=== PATIENT | female | born 1940 | race Caucasian/White ===

== ENCOUNTER 2016-07-31 11:16 | Outpatient (CLI) | payer MEDICARE, BC ==
[~2016-07-31] VITALS: Ht 167.6 cm; Wt 67.7 kg
--- NOTE | ~2016-07-31 | HEMODYNAMI ---
PATIENT:JOHANNA HURTADO MEDICAL RECORD: [id number] : 36 LOCATION:[facility] ADMISSION DATE: 07/31/16 Generatedon:07/31/201614:42 Patient name: JOHANNA HURTADO Patient #: [id number] SSN: [id number] : 1940 Date of study: 07/31/2016 Page: Of Hemodynamic Procedure Report Patient Data Patient Demographics Procedure consent was obtained First Name: JOHANNA Gender: Female Last Name: BRYANT : 1940 Patient #: [id number] Age: 75 year(s) Race: Unknown SSN: [id number] Additional ID: [id number] Contact details Address: [place] [address] State: [place] City: [place] Zip code: [address] Past Medical History Allergies Allergen Reaction Date Comments Reported Other allergy 07/31/2016 Lidocaine, Novocain, statins Admission Admission Data Admission Date: 07/31/2016 Admission Time: 11:16 Arrival Date: 07/31/2016 Arrival Time: 0:00 Insurance Payor: Private health insurance, Medicare Height (in.): 66 BSA: 1.77 (m2) Height (cm.): 167.64 BMI: 24.37 (kg/m2) Weight (lbs.): 151 Weight (kg.): 68.49 Lab Results Lab Result Date: 07/31/2016 Lab Result Time: 0:00 Biochemistry Name Units Result Min Max BUN mg/dl 17 --(---*)-- 7 18 Creatinine mg/dl 0.8 --(-*--)-- 0.6 1.3 CBC Name Units Result Min Max Hemoglobin g/dl 12.8 -*(----)-- 13.5 17.5 Procedure Procedure Types Cath Procedure Diagnostic Procedure LHC LHC w/Coronaries Miscellaneous Procedures Moderate Sedation up to 15 minutes Procedure Description Procedure Date Procedure Date: 07/31/2016 Procedure Start Time: 14:27 Procedure End Time: 14:38 Procedure Staff Name Function Jas Hightower MD Performing Physician Brenda Hernandez RT Scrub Keke Marie RN Nurse Kisha Beaver RT Monitor Procedure Data Cath Procedure Fluoroscopy Diagnostic fluoroscopy Total fluoroscopy Time: 1.2 time: 1.2 min min Diagnostic fluoroscopy Total fluoroscopy dose: 69 dose: 69 mGy mGy Contrast Material Contrast Material Type Amount (ml) Isovue 300 55 Entry Location Entry Primary Successful Side Size Upsize Upsize Entry Closure Succes sful Closure Location (Fr) 1 (Fr) 2 (Fr) Remarks Device Remarks Femoral Right 5 Fr Exoseal artery Estimated blood loss: 10 ml Diagnostic catheters Device Type Used For End Catheter Placement Cordis 5Fr JL 4.0 Procedure Catheter (MP) Cordis 5Fr 3DRC Catheter Procedure (MP) Cordis 5Fr Pigtail Procedure Catheter (MP) Procedure Complications No complications Procedure Medications Medication Administration Route Dosage Oxygen NC 2 l/min Heparin Flush Bag added to field 2 bags (1000units/500ml NS) Versed I.V. 1 mg Fentanyl I.V. 50 mcg Versed I.V. 1 mg Fentanyl I.V. 50 mcg Benadryl added to field 50 mg Hemodynamics Rest BSA: 1.77 (m2) HGB: 12.8 (g/dl) O2 Consumption: Estimated: 151.96 (ml/min) O2 Co nsumption indexed: Estimated:85.85 (ml/min/m) Heart Rate: 58 (bpm) Pressure Samples Time Site Value (mmHg) Purpose Heart Use Rate(bpm) 14:35 LV 103/-6,9 Snapshot 65 14:35 AO 111/40(72) Pullback 69 14:35 LV 106/3,9 Pullback 69 Gradients Valve Time Site 1 Site 2 Mean SEP/DFP Peak To Heart Use (mmHg) (sec/min) Peak Rate (mmHg) (bpm) Aortic 14:35 LV AO 0 18 0 69 106/3,9 111/40(72) Calculations Valve P-P Mean Valve Index Valve Source Name Gradient Area Flow (cm2) Aortic 0 0 0 0 Snapshots Pre Cath Intra NCS Post Cath Vital Signs Time Heart Resp SPO2 NIBP Rhythm Pain Sedation Rate (ipm) (%) (mmHg) Status Level (bpm) 14:12:02 57 16 98 136/56(97) NSR 0 (11) 10(A) , No pain 14:16:18 58 16 97 119/60(90) NSR 0 (11) 10(A) , No pain 14:20:30 63 14 96 119/55(82) NSR 0 (11) 10(A) , No pain 14:24:44 55 15 95 104/57(83) NSR 0 (11) 10(A) , No pain 14:28:52 63 15 95 115/53(84) NSR 0 (11) 9(A) , No pain 14:33:00 124 14 95 106/65(89) NSR 0 (11) 9(A) , No pain 14:37:08 67 15 95 114/56(78) NSR 0 (11) 9(A) , No pain Medications Time Medication Route Dose Verified Delivered Reason Notes Effec tiveness by by 14:10:58 Oxygen NC 2 Jas Keke Per l/min [place] Cynthia RN physician 14:11:06 Heparin Flush added 2 Jas Jas used for Bag to bags [facility] procedure (1000units/500ml field MD BARRAZA NS) 14:21:25 Versed I.V. 1 mg Jas Keke for [place] Cynthia RN sedation 14:21:32 Fentanyl I.V. 50 Jas Keke for mcg [place] Cynthia SPAIN sedation 14:24:47 Versed I.V. 1 mg Jas Keke for [place] Cynthia RN sedation 14:24:51 Fentanyl I.V. 50 Jas Keke for [facility] Cynthia RN sedation 14:29:46 Benadryl added 50 mg Jas Jas used for to [facility] procedure field MD BARRAZA Procedure Log Time Note 13:45:29 Brenda Hernandez RT(R) sent for patient. Start room use. 14:01:02 Diagnostic Cath Status : Elective 14:03:37 Patient Height : 167.64 inches 14:03:50 Patient Weight : 68.49 lbs 14:03:50 Insurance Payor : Private health insurance, Medicare 14:03:58 Arrival Date: 07/31/2016 12:00:00 AM 14:04:56 Procedure type changed to Cath procedure, Diagnostic procedure, LHC, LHC w/Coronaries, Miscellaneous Procedures, Moderate Sedation up to 15 minutes 14:05:22 Time tracking: Regular hours 14:05:27 Plan of Care:Hemodynamics will remain stable., Cardiac rhythm will remain stable., Comfort level will be maintained., Respiratory function will remain adequate., Patient/ family verbilizes understanding of procedure., Procedure tolerated without complication., Recovers from procedure without complications.. 14:05:38 Patient received from Outpatients to [facility] 3 Alert and oriented. Tansferred to table in Supine position. 14:05:39 Warm blankets applied, and rosalino hugger turned on for patient comfort. 14:05:39 Correct patient and procedure confirmed by team. 14:05:41 Signed procedure consent form obtained from patient. 14:05:50 H&P Date Dictated: 07/26/2016 Within 30 days and on chart., H&P Addendum completed by physician on day of procedure. (MUST COMPLETE FOR ALL OUTPATIENTS). 14:05:53 Pre-procedure instructions explained to patient. 14:05:54 Family in waiting room. 14:05:56 Patient NPO since Midnight. 14:06:34 Patient allergic to Other allergyLidocaine, Novocain, statins 14:06:44 Is the patient allergic to Iodine/contrast media? No. 14:06:53 Is patient on blood thinner?No 14:06:54 Patient diabetic? No. 14:06:58 Snore? Yes 14:07:00 Sleep apnea? No 14:07:15 Patient pain scale 0/10 ?. 14:07:34 IV patent on arrival in left forearm with 0.9% NaCl at O. 14:07:47 Lab results completed and on chart. 14:09:41 Lab Result : BUN 17 mg/dl 14:09:41 Lab Result : Hemoglobin 12.8 g/dl 14:09:41 Lab Result : Creatinine 0.8 mg/dl 14:09:47 Lab results completed and on chart. 14:09:50 Right groin area was prepped with chlora-prep and draped in sterile fashion 14:10:02 Sharps counted by scrub and verified by R.N. 14:10:03 Physician paged 14:10:46 Vital chart was started 14:10:58 Oxygen 2 l/min NC was given by Keke Marie RN; Per physician; 14:11:06 Heparin Flush Bag (1000units/500ml NS) 2 bags added to field was given by Jas Hightower MD; used for procedure; 14:16:54 ECG and BP/O2 sat monitors applied to patient. 14:16:55 Baseline sample Acquired. 14:17:00 Rhythm: sinus rhythm 14:17:03 Full Disclosure recording started 14:17:21 Use device set Femoral Dx 14:20:10 Acist Syringe opened to sterile field. 14:20:11 Bag Decanter opened to sterile field. 14:20:11 Medline Cath Pack opened to sterile field. 14:20:12 Terumo 5Fr [place] Sheath opened to sterile field. 14:20:13 St C[employer]ar 260cm J .035 wire opened to sterile field. 14:20:14 Acist Hand Control opened to sterile field. 14:20:14 Acist Manifold opened to sterile field. 14:20:15 Diagnostic Infinity 5Fr Multipack catheter opened to sterile field. 14:20:18 Tegaderm 4 x 4 opened to sterile field. 14:20:27 --------ALL STOP TIME OUT------ 14:20:28 Final Timeout: patient, procedure, and site verified with staff and physician. All members of the team are in agreement. 14:20:31 Right groin site verified by team. 14:20:34 Physical assessment completed. ASA score P 2 - A patient with mild systemic disease as per Jas Hightower MD. 14:20:39 Sedation plan: IV Moderate Sedation Versed, Fentanyl 14:21:25 Versed 1 mg I.V. was given by Keke Marie RN; for sedation; 14:21:32 Fentanyl 50 mcg I.V. was given by Keke Marie RN; for sedation; 14:24:47 Versed 1 mg I.V. was given by Keke Marie RN; for sedation; 14:24:51 Fentanyl 50 mcg I.V. was given by Keke Marie RN; for sedation; 14:27:09 Procedure started. 14:28:43 Benadryl used for local in right groin 14:29:18 A 5 Fr sheath was inserted into the Right Femoral artery 14:29:46 Benadryl 50 mg added to field was given by Jas Hightower MD; used for procedure; 14:30:16 A Cordis 5Fr JL 4.0 Catheter (MP) was advanced over the wire and used for Procedure. 14:31:39 LCA angiography performed. 14:32:28 Catheter removed. 14:32:38 A Cordis 5Fr 3DRC Catheter (MP) was advanced over the wire and used for Procedure. 14:32:42 RCA angiography performed. 14:34:00 Catheter removed. 14:34:08 A Cordis 5Fr Pigtail Catheter (MP) was advanced over the wire and used for Procedure. 14:34:12 LV gram done using GRACIA 14:34:16 LV hemodynamics recorded. 14:35:50 EF : 55 % 14:36:00 Cordis 5Fr Exoseal opened to sterile field. 14:36:13 Sheath removed intact; hemostasis achieved with Exoseal to the Right Femoral artery. 14:36:17 Procedure ended.(Physican Out) 14:36:38 Fluoroscopy time 01.20 minutes. 14:36:42 Fluoroscopy dose: 69 mGy 14:36:42 Flurop Dose total: 69 14:36:49 Contrast amount:Isovue 300 55ml. 14:36:50 Sharps counted by scrub and verified by R.N. 14:36:53 Insertion/operative site no bleeding no hematoma. 14:36:55 Post Procedure Pulses reassessed and unchanged 14:37:00 Post-procedure physical assessment completed. ASA score P 2 - A patient with mild systemic disease as per Jas Hightower MD. 14:37:11 Estimated blood loss: 10 ml 14:37:13 Post procedure instruction explained to patient.Patient verbalizes understanding. 14:37:18 Procedure and supply charges have been captured, reviewed, submitted and are correct. 14:37:48 Procedure Complication : No complications 14:37:50 Vital chart was stopped 14:37:52 See physician's report for complete and final results. 14:37:55 Report given to Outpatients. 14:37:59 Patient transfered to Outpatients with Stretcher. 14:38:02 Procedure ended. 14:38:02 Full Disclosure recording stopped 14:38:12 End room use (Document Last) Device Usage Item Name Manufacture Quantity Catalog Hospital Part Current Minimal Lo t# / Number Charge Number Stock Stock Serial# Code Acist [facility] 1 95972 332199 862834 [id number] 20 Syringe Medical Systems Inc Bag Microtek 1 2002S 167518 97990 576741 5 Decanter [employer] Inc. Medline Cardinal 1 [id number] 455915 69880 272498 5 Cath Pack Health Terumo 5Fr Terumo 1 GHW136 273809 317502 467675 [address] 1 929122 823783 063837 954353 30 260cm J .035 wire Acist Hand Acist 1 31305 282572 509802 991162 5 Control Medical Systems Inc Acist Acist 1 52172 145600 009949 009080 5 Manifold Medical Systems Inc Diagnostic Cardinal 1 [id number] 886507 33783 881378 30 [employer] 5Fr Multipack catheter Tegaderm 4 3M 1 1626W 461857 861125 964128 5 x 4 Cordis 5Fr Cardinal 1 780095 5 JL 4.0 Health Catheter (MP) Cordis 5Fr Cardinal 1 701772 5 3DRC Health Catheter (MP) Cordis 5Fr Cardinal 1 [id number] 5 Pigtail Health Catheter (MP) Cordis 5Fr Cardinal 1 EX500 194396 050017 973505 10 [place] [employer] Signature Audit [place] Stage Time Signature Unsigned Intra-Procedure 07/31/2016 Kisha Beaver 2:42:44 PM RT(R) Signatures Monitor : Kisha Beaver Signature : RT Date : Time : [address] [place] [address]
[2016-07-31] MEDS ORDERED: NITROSTAT0.4 MG SL (12:01)
[2016-07-31] MEDS ORDERED: ZOLOFT25 MG PO (12:01)
[2016-07-31] MEDS ORDERED: NORVASC5 MG PO (12:02)
[2016-07-31] MEDS ORDERED: ARICEPT5 MG PO (12:02)
[2016-07-31] MEDS ORDERED: MIRAPEX0.5 MG PO (12:03)
[2016-07-31] MEDS ORDERED: COREG 3.1253.125 MG PO (12:03)
[2016-07-31] MEDS ORDERED: ZETIA10 MG PO (12:03)
[2016-07-31] MEDS ORDERED: PEPCID20 MG PO (12:04)
[2016-07-31] MEDS ORDERED: PLAVIX75 MG PO (12:04)
[2016-07-31] MEDS ORDERED: KLONOPIN0.5 MG PO (12:04)
[2016-07-31] MEDS ORDERED: BAYER CHEWABLE81 MG PO (12:05)
[2016-07-31 12:20] VITALS: BP 113/54; Ht 167.6 cm; Wt 67.7 kg
[2016-07-31 12:30] LABS: ANION GAP 12.9 mmol/L (8-16); CALCIUM 9.1 mg/dL (8.5-10.1); CARBON DIOXIDE 26.1 mmol/L (21.0-32.0); CREATININE - SERUM 0.8 mg/dL (0.6-1.3)
[2016-07-31 13:01] LABS: BASOPHILS 0.8 % (0.0-2.0); EOSINOPHILS 4.3 % (0-7); HEMATOCRIT 38.4 % (36.0-48.0); HEMOGLOBIN 12.8 g/dL (12-16); IMMATURE GRANULOCYTES 0.2 % (0-5); LYMPHOCYTES 25.4 % (15-50); MCH 31.8 pg (26.0-34.0); MCHC 33.3 g/dL (31.0-37.0); MCV 95.3 fL (80.0-100.0); MEAN PLATELET VOLUME 11.7 fL (7.4-10.4); MONOCYTES 10.7 % (2-11); NEUTROPHILS 58.6 % (40-80); PLATELET COUNT 159 10x3/uL (130-400); RBC 4.03 10x6/uL (4.00-5.40); RDW 12.3 % (11.5-14.5); WBC 5.3 10x3/uL (4.8-10.8)
--- NOTE | 2016-07-31 15:25 | NUR ---
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 PT SLEEPING, AWAKENS EASILY TO VERBAL STIMULI. DENIES ANY C/O CHEST PAIN. 5 FR EXOSEAL CDI TO RIGHT GROIN, NO BLEEDING OR HEMATOMA NOTED. PEDAL PULSES PALPABLE. FAMILY AT BEDSIDE, CALL LIGHT IN REACH. INSTRUCTED PT AND FAMILY ON NEED TO KEEP PT'S RIGHT LEG STRAIGHT AND HEAD TO PILLOW AND THEY VERBALIZE UNDERSTANDING.
--- NOTE | 2016-07-31 17:00 | NUR ---
1545 PT DENIES ANY C/O. DRESING TO RIGHT GROIN REMAINS CDI, NO BLEEDING OR HEMATOMA NOTED. TOLERATING PO FLUIDS. 1630 PT IS ALERT, SANDWICH HAS BEEN SERVED. PT DENIES ANY C/O AT THIS TIME. 1645 DC INSTRUCTIONS REVIEWED WITH PT AND SPOUSE WHO VERBALIZE UNDERSTANDING. IV DC'D WITH CATH INTACT AND PT IS DRESSING FOR DC TO HOME. PT TOLERATED SANDWICH WITH NO C/O NAUSEA. 1700 PT HAS AMBULATED TO THE BATHROOM AND VOIDED QS. GROIN REMAINS STABLE AND PT DENIES ANY C/O. PT ESCORTED TO PRIVATE AUTO VIA BY STAFF WITH DRIVING HER HOME.
--- NOTE | 2016-08-07 13:35 | OP ---
PATIENT NAME: JOHANNA HURTADO MEDICAL RECORD: [id number] :36 LOCATION:D.CAT ADMISSION DATE: SURGEON: CHRISSY METCALF MD DATE OF OPERATION: 07/31/2016 PROCEDURE: Left heart catheterization, selective coronary angiography, right femoral artery approach. CATHETERS: A 5-Bengali sheath, 5/4 left and right My, 5/4 pig. The procedure was well tolerated. The patient returned to fan, sheath removed. ExoSeal was device placed. FINDINGS: Left ventriculography in 30-degree GRACIA view: Normal wall motion and normal systolic function. CORONARY ANATOMY: Left main: Left main is free of disease. LAD: LAD area of previous stenting is widely patent without evidence of restenosis. No evidence of progression of [place] disease. CIRCUMFLEX: Again, patent stent, no progression of [place] disease. RIGHT CORONARY ARTERY: No significant disease. IMPRESSION: Widely patent stent. Normal LV function. No progression of [place] disease. TRANSINT:[id number] Voice Confirmation ID: [id number] DOCUMENT ID: [id number] CHRISSY METCALF MD at 1335 CC: [id number] DICTATION DATE: 07/31/16 1442 TRAINS SERVICE CONDUCTOR: 07/31/161953 DEP CLI 07/31/16 [facility] [address] [place] [address]
== END 2016-07-31 17:00 | disposition home or self-care (01) ==
LOC: D.CATH 11:16
PROVIDERS: Internal Medicine Interventional Cardiology
DX: I20.9 Angina pectoris, unspecified (principal); I10 Essential (primary) hypertension; E78.5 Hyperlipidemia, unspecified; K21.9 Gastro-esophageal reflux disease without esophagitis

== ENCOUNTER 2016-12-25 20:26 | Observation (INO) | payer MEDICARE, BC ==
[~2016-12-25] VITALS: Ht 167.6 cm; Wt 67.7 kg
[~2016-12-25 20:26] MED LIST: ARICEPT5 MG PO; BAYER CHEWABLE81 MG PO; COREG 3.1253.125 MG PO; KLONOPIN0.5 MG PO; MIRAPEX0.5 MG PO; NITROSTAT0.4 MG SL; NORVASC5 MG PO; PEPCID20 MG PO; PLAVIX75 MG PO; ZETIA10 MG PO; ZOLOFT25 MG PO
[2016-12-25 21:15] LABS: BASOPHILS 0.2 % (0-2); EOSINOPHILS 1.9 % (0-7); HEMATOCRIT 36.2 % (36.0-48.0); IMMATURE GRANULOCYTES 0.1 % (0-5); LYMPHOCYTES 13.3 % (15-50); MCH 31.5 pg (26.0-34.0); MCHC 33.1 g/dL (31.0-37.0); MEAN PLATELET VOLUME 11.1 fL (7.4-10.4); MONOCYTES 12.6 % (2-11); NEUTROPHILS 71.9 % (40-80); PLATELET COUNT 160 10x3/uL (130-400); RBC 3.81 10x6/uL (4.00-5.40); RDW 12.6 % (11.5-14.5); WBC 8.4 10x3/uL (4.8-10.8)
[2016-12-25 21:34] LABS: ALBUMIN 3.3 g/dL (3.4-5.0); ALKALINE PHOSPHATASE 89 U/L (46-116); ALT (SGPT) 19 U/L (10-68); BILIRUBIN - TOTAL 0.35 mg/dL (0.2-1.3); CALC OSMOLALITY 283 mosm/kg (275-300); CALCIUM 8.6 mg/dL (8.5-10.1); CARBON DIOXIDE 26.6 mmol/L (21.0-32.0); CHLORIDE - SERUM 106 mmol/L (98-107); CREATININE - SERUM 0.9 mg/dL (0.6-1.3); GLUCOSE 107 mg/dL (74-106); POTASSIUM - SERUM 4.3 mmol/L (3.5-5.1); PROTEIN - SERUM 6.2 g/dL (6.4-8.2); SODIUM 142 mmol/L (136-145); UREA NITROGEN 15 mg/dL (7-18); eGFR NON AFRICAN AMERICAN 64 mL/min (90-120)
[2016-12-25 21:45] LABS: AMYLASE - SERUM 43 U/L (25-115); CREATINE KINASE 187 UL (21-215); LIPASE 145 U/L (73-393)
[2016-12-25 21:46] LABS: TROPONIN-I < 0.017 ng/mL (0.000-0.060)
[2016-12-26] MEDS ORDERED: CELEXA40 MG PO (02:03)
--- NOTE | 2016-12-26 02:14 | NUR ---
ADMITTED TO ROOM 2238 FROM ER WIHT COMPLIANTS OF CHEST PAIN. ACCOMPAINED BY FAMILY. SL TO LEFT FOREARM INTACT. LEFT ANKLE WITH EDEMA NOTED. BRUISING TO LEFT SIDE OF FOOT FROM FALL EARILER TODAY.NO COMPLAINTS VOICED AT THIS TIME. AT BEDSIDE. ORIENTED TO ROOM. CL IN REACH
[2016-12-26 04:00] VITALS: BP 128/63
[2016-12-26 05:41] LABS: CKMB 0.9 U/L (0.0-3.6); CREATINE KINASE 156 UL (21-215); TROPONIN-I < 0.017 ng/mL (0.000-0.060)
--- NOTE | 2016-12-26 07:05 | NUR ---
PATIENT RECEIVED ALERT IN MID CABRERA POSITION. NO SIGNS OF DISTRESS NOTED. SIDE RAILS UP X2. BED IN LOW POSITION. CALL LIGHT IN REACH. FAMILY PRESENT. DENIES NEEDS.
[2016-12-26 07:40] VITALS: BP 121/57
[2016-12-26 09:12] VITALS: Ht 167.6 cm; Wt 67.7 kg
--- NOTE | 2016-12-26 09:15 | NUR ---
PATIENT ALERT IN BED WITH PRESENT. NO SIGNS OF DISTRESS NOTED. ANXIOUS TO SEE PHYSICIAN. DENIES NEEDS. SIDE RAILS UP X2. BED IN LOW POSITION. CALL LIGHT IN REACH.
--- NOTE | 2016-12-26 09:43 | NUR ---
ORDERED MEDICATION ADMINISTERED. WELL TOLERATED. SCDS ON BILATERALLY.
[2016-12-26 09:57] LABS: CKMB 0.4 U/L (0.0-3.6); CREATINE KINASE 150 UL (21-215)
[2016-12-26 10:04] LABS: TROPONIN-I < 0.017 ng/mL (0.000-0.060)
[2016-12-26 10:09] LABS: BASOPHILS 0.3 % (0-2); HEMATOCRIT 37.6 % (36.0-48.0); HEMOGLOBIN 12.4 g/dL (12-16); IMMATURE GRANULOCYTES 0.2 % (0-5); LYMPHOCYTES 22.6 % (15-50); MCH 31.7 pg (26.0-34.0); MCV 96.2 fL (80.0-100.0); MEAN PLATELET VOLUME 11.4 fL (7.4-10.4); MONOCYTES 10.3 % (2-11); NEUTROPHILS 62.6 % (40-80); PLATELET COUNT 145 10x3/uL (130-400); RBC 3.91 10x6/uL (4.00-5.40)
[2016-12-26 10:11] LABS: WBC 5.7 10x3/uL (4.8-10.8)
[2016-12-26 10:25] LABS: ALBUMIN 3.1 g/dL (3.4-5.0); ANION GAP 12.7 mmol/L (8-16); BILIRUBIN - TOTAL 0.49 mg/dL (0.2-1.3); CALCIUM 8.9 mg/dL (8.5-10.1); CARBON DIOXIDE 26.7 mmol/L (21.0-32.0); CREATININE - SERUM 0.9 mg/dL (0.6-1.3); POTASSIUM - SERUM 4.4 mmol/L (3.5-5.1); PROTEIN - SERUM 6.4 g/dL (6.4-8.2)
--- NOTE | 2016-12-26 11:15 | NUR ---
ALERT IN BED WITH AT BEDSIDE. NO SIGNS OF DISTRESS NOTED. DENIES NEEDS. SIDE RAILS UP X2. BED IN LOW POSITION. CALL LIGHT IN REACH.
[2016-12-26 11:35] VITALS: BP 121/53
[2016-12-26] MEDS ORDERED: PROTONIX40 MG PO (14:28)
--- NOTE | 2016-12-26 15:14 | NUR ---
IV TO LEFT FOREARM D/C WITH CATH TIP INTACT. SITE COVERED WITH GAUZE AND BANDAID. D/C TEACHING PROVIDED TO PATIENT AND . STATES UNDERSTANDING. QUESTIONS ANSWERED.
--- NOTE | 2016-12-26 15:21 | NUR ---
PATIENT D/C HOME. TRANSFERRED DOWNSTAIRS VIA WHEELCHAIR WITH VOLUNTEER.
== END 2016-12-26 15:21 | disposition home or self-care (01) ==
LOC: D.ER 20:26 → D.MS 12-26 00:33 → OBSVTIME 12-26 00:34 → D.MS 12-26 15:21
PROVIDERS: Family Medicine; ADMIT Emergency Medicine
DX: R07.89 Other chest pain (principal); I16.0 Hypertensive urgency; I25.10 Atherosclerotic heart disease of native coronary artery without angina pectoris; Z95.5 Presence of coronary angioplasty implant and graft; F17.200 Nicotine dependence, unspecified, uncomplicated

== ENCOUNTER → 2020-08-22 10:19 | Outpatient (CLI) | payer MEDICARE, BC ==
[2016-12-26 09:12] VITALS: BMI 24.1
--- NOTE | ~2020-08-22 | EC ---
PATIENT:JOHANNA HURTADO DATE OF SERVICE: 08/22/20 SEX: F MEDICAL RECORD: [id number] DATE OF : 36 LOCATION:D.[facility] AGE OF PATIENT: 79 ADMISSION DATE: 08/22/20 REFERRING PHYSICIAN: INTERPRETING PHYSICIAN: CHRISSY METCALF MD ECHOCARDIOGRAM REPORT ECHO CHARGES 4 ECHO COMPLETE Date: 08/22/20 CLINICAL DIAGNOSIS: CAD/ASSESS EF/MITRAL REGURG ECHOCARDIOGRAPHIC MEASUREMENTS (adult normal given) AC root (d.<3.7cm) 3.0 cm LV Septum d (<1.2 cm> 1.2 cm Valve Excursion 1.3 cm LV Septum (systole) 1.3 cm Left Atria (s.<4.0cm> 3.2 cm LVPW d(<1.2cm) 1.1 cm RV (d.<2.3cm) 2.9 cm LVPW (sytole) 1.7 cm LV diastole(<5.6CM) 4.8 cm MV E-F(>70mm/sec) cm LV systole 3.0 cm LVOT Diameter 1.7 cm MV exc.(>10mm) 1.5 cm Est.ejection fraction (50-75%) % DOPPLER: LVIT cm/sec A 95.0 cm/sec E 68.0 cm/sec LA cm/sec RVSP 28 mmHg LVOT 125 cm/sec AOP1/2T m/s Asc. Ao 125 cm/sec RVOT 65 cm/sec RA cm/sec PA 99 cm/sec AV Gradient Peak 6.29 mmHg AV Mean 3.01 mmHg AV Area 2.3 cm MV Gradient Peak 3.40 mmHg MV Mean 1.19 mmHg MV Area cm COMMENTS: Music Industry Intern: 2 LAURO TOBAR Bender Hand: 3 Dr. Hightower TAPE# PACS Pericardial Effusion N DATE OF SERVICE: Adequate 2D, color flow imaging, spectral Doppler, and M-Mode. No LVH. LV internal dimensions are normal. Wall motion normal. EF greater than or equal to 55%. Aortic valve is tricuspid. No evidence of stenosis by Doppler interrogation. Left atrium is normal at 3.2 cm. Mitral valve shows no prolapse. Trace MR. Right-sided chambers are grossly normal. Mild TR. TRANSINT:[id number] Voice Confirmation ID: [id number] DOCUMENT ID: [id number] ECHOCARDIOGRAM REPORT [id number] JOHANNA HURTADO GREGORY A MD CC: [id number] DICTATION DATE: 08/23/20 1127 LINGO CLEANER: 08/23/202033 [facility] CLI 08/22/[address] [address]
[~2020-08-22 10:19] MED LIST changes: +CELEXA40 MG PO; +PROTONIX40 MG PO
== END | disposition home or self-care (01) ==
LOC: D.HCCECHO 10:19
PROVIDERS: ATTEND Internal Medicine Interventional Cardiology
DX: I25.10 Atherosclerotic heart disease of native coronary artery without angina pectoris (principal)